=== PATIENT | female | born 1985 | race Caucasian/White ===

== ENCOUNTER 2019-06-27 19:53 | Emergency (ER) | payer SELFPAY ==
[2019-06-27] MEDS ORDERED: ONDANSETRON 4 MG TAB.RAPDIS PO ONE (21:29)
--- NOTE | 2019-06-27 21:31 | ER Document Report ---
ED Medical Screen (RME) - General Chief Complaint: Abdominal Pain Stated Complaint: ABDOMINAL PAIN Time Seen by Provider: 06/27/19 21:29 Information source: Patient Notes: Patient reports developing left lateral side pain that started yesterday. Patient states this morning she woke up and the left side pain had resolved and the pain is now to the right lower quadrant. Patient complains of abdominal distention with nausea. Patient also complains of some dysuria symptoms. No fever, no vomiting. I have greeted and performed a rapid initial assessment of this patient. A comprehensive ED assessment and evaluation of the patient, analysis of test results and completion of the medical decision making process will be conducted by additional ED providers. Physical Exam - Vital signs Vitals: Temp Pulse Resp BP Pulse Ox 97.7 F 69 16 124/65 98 06/27/19 20:05 06/27/19 20:05 06/27/19 20:05 06/27/19 20:05 06/27/19 20:05 - Abdominal Tenderness: Tender - Right lower quadrant Course - Vital Signs Vital signs: Temp Pulse Resp BP Pulse Ox 97.7 F 69 16 124/65 98 06/27/19 20:05 06/27/19 20:05 06/27/19 20:05 06/27/19 20:05 06/27/19 20:05
--- NOTE | 2019-06-27 22:51 | RADIOLOGY REPORT (SQ) ---
Ultrasound of the pelvis: 06/27/2019 9:48 PM SIX SIGMA BLACK TRAINER HISTORY: 34-year-old patient with right lower quadrant pelvic and abdominal pain. TECHNIQUE: Multiple grayscale and color Doppler images of the pelvis were obtained transvaginally. COMPARISON: None available FINDINGS: The uterus measures 9.2 x 4.5 x 5.3 cm. The endometrium measures 5.0 mm in thickness. No myometrial mass is seen. No free intraperitoneal fluid is seen within the posterior cul-de-sac. The right ovary measures 3.5 x 2.1 x 2.5 cm. The left ovary was not visualized. Arterial and venous waveforms were obtained from the right ovary. IMPRESSION: No sonographic abnormality is seen within the pelvis.
[2019-06-28 00:01] LABS: APPEARANCE,URINE SLIGHTLY-CLOUDY; BILIRUBIN,URINE NEGATIVE (NEGATIVE); COLOR,URINE YELLOW; GLUCOSE, URINE NEGATIVE (NEGATIVE); KETONES,URINE NEGATIVE (NEGATIVE); LEUKOCYTE ESTERASE,URINE NEGATIVE (NEGATIVE); NITRITE,URINE NEGATIVE (NEGATIVE); PROTEIN,URINE NEGATIVE (NEGATIVE); URINE SPECIFIC GRAVITY 1.023; UROBILINOGEN,URINE NEGATIVE mg/dL (<2.0)
[2019-06-28 00:19] LABS: CHLAM PCR NOT DETECTED (NOT DETECT)
[2019-06-28] MEDS ORDERED: ONDANSETRON 4 MG TAB.RAPDIS ONE (01:15)
[2019-06-28 01:24] LABS: ABSOLUTE BASOPHILS # (AUTO) 0.1 10^3/uL (0.0-0.2); ABSOLUTE EOSINOPHILS # (AUTO) 0.2 10^3/uL (0.0-0.6); ABSOLUTE LYMPHOCYTES (AUTO) 3.7 10^3/uL (0.5-4.7); ABSOLUTE MONOCYTES (AUTO) 0.6 10^3/uL (0.1-1.4); ABSOLUTE NEUT (AUTO) 5.6 10^3/uL (1.7-8.2); BASOPHILS % (AUTO) 0.8 % (0-2); EOSINOPHILS % (AUTO) 1.8 % (0-6); HEMOGLOBIN 13.8 g/dL (12.0-15.5); LYMPHOCYTES % (AUTO) 36.4 % (13-45); MEAN CORPUSCULAR HEMOGLOBIN 29.7 pg (27.0-33.4); MEAN CORPUSCULAR HGB CONC 33.8 g/dL (32.0-36.0); MEAN CORPUSCULAR VOLUME 88 fl (80-97); PLATELET COUNT 315 10^3/uL (150-450); RED BLOOD COUNT 4.66 10^6/uL (3.72-5.28); RED CELL DISTRIBUTION WIDTH 13.8 % (11.5-14.0); TOTAL CELLS COUNTED % (AUTO) 100 %; WHITE BLOOD COUNT 10.1 10^3/uL (4.0-10.5)
--- NOTE | 2019-06-28 01:41 | ER Document Report ---
ED GI/ - General Chief Complaint: Lower Abdominal Pain Stated Complaint: ABDOMINAL PAIN Time Seen by Provider: 06/27/19 21:29 Notes: Patient is a 34-year-old female that comes to the emergency department for chief complaint of swelling of the abdomen and pain at first only in her left but now also in her right mid to lower abdomen. Symptoms started yesterday but she states that she has ongoing problems with lower abdominal pain. She also reports some dysuria but states this is also chronic for her. She denies vaginal bleeding or discharge but she does report irregular menstrual cycles. She denies any abdominal surgeries. She states she has had a cystoscopy in the past because of ongoing dysuria and this was normal. She denies any abdominal surgeries or daily medications. She states her bowel movements are very abnormal, always diarrhea, and she has current hemorrhoids. TRAVEL OUTSIDE OF THE [place] IN LAST 30 DAYS: No - Related Data Allergies/Adverse Reactions: No Known Allergies Allergy (Verified 06/28/19 01:11) Home Medications: acid investment counselor tab. gabapentin. buspar. clonidine. hydroxyzine. lamictal. seroquel. celexa Past Medical History - General Information source: Patient - Social History Smoking Status: Current Every Day Smoker Frequency of alcohol use: None Drug Abuse: None Lives with: Family Family History: Reviewed & Not Pertinent Patient has suicidal ideation: No Patient has homicidal ideation: No - Immunizations Immunizations up to date: Yes Hx Diphtheria, Pertussis, Tetanus Vaccination: Yes Review of Systems - Review of Systems Constitutional: No symptoms reported EENT: No symptoms reported Cardiovascular: No symptoms reported Respiratory: No symptoms reported Gastrointestinal: See HPI Genitourinary: See HPI Female Genitourinary: See HPI Musculoskeletal: No symptoms reported Skin: No symptoms reported Hematologic/Lymphatic: No symptoms reported Neurological/Psychological: No symptoms reported Physical Exam - Vital signs Vitals: Temp Pulse Resp BP Pulse Ox 97.7 F 69 16 124/65 98 06/27/19 20:05 06/27/19 20:05 06/27/19 20:05 06/27/19 20:05 06/27/19 20:05 - Notes Notes: GENERAL: Alert, interacts well. No acute distress. HEAD: Normocephalic, atraumatic. EYES: Pupils equal, round, and reactive to light. Extraocular movements intact. ENT: Oral mucosa moist, tongue midline. Oropharynx unremarkable. Airway patent. LUNGS: Clear to auscultation bilaterally, no wheezes, rales, or rhonchi. No respiratory distress. HEART: Regular rate and rhythm. No murmur ABDOMEN: Slightly distended abdomen which has some generalized tenderness but no guarding. Bowel sounds are slightly quiet but still present. GENITOURINARY: No concerning external findings, speculum exam is completely normal, no cervical motion tenderness. Exam performed with Brainne RN at bedside assisting. EXTREMITIES: Moves all 4 extremities spontaneously. No edema, normal radial and dorsalis pedis pulses bilaterally. No cyanosis. BACK: no cervical, thoracic, lumbar midline tenderness. No saddle anesthesia, normal distal neurovascular exam. Moves all extremities in full range of motion. NEUROLOGICAL: Alert and oriented x3. Normal speech. Cranial nerves II through XII grossly intact. PSYCH: Patient speaks rapidly and anxiously about all of her symptoms. SKIN: Warm, dry, normal turgor. No rashes or lesions noted. Course - Re-evaluation Re-evalutation: Patient was initially very anxious about all of her symptoms. She does have some abdominal distention which is mild, her abdomen has very mild generalized tenderness, no guarding. Vital signs unremarkable. Work-up completely unre markable including CBC, chemistry, urinalysis, pelvic exam, ultrasound. I did perform KUB as well, this shows no concerning findings but does show that with some retained stool. I suspect patient's symptoms are from her bowel. Patient will be given medications to help clear her bowel and for bowel symptoms, I did discuss gastroenterology follow-up, I did attempt to reassure her. I feel very low suspicion of acute abdomen or concerning abnormality based on her evaluation. Patient did state appreciation and agreement, asymptomatic at time of discharge. - Vital Signs Vital signs: Temp Pulse Resp BP Pulse Ox 97.8 F 77 16 102/53 L 99 06/28/19 04:16 06/28/19 04:16 06/28/19 04:16 06/28/19 04:16 06/28/19 04:16 - Laboratory Result Diagrams: 06/28/19 01:04 06/28/19 01:04 Laboratory results interpreted by me: 06/27/19 20:01 Urine Ascorbic Acid 20 H Discharge - Discharge Clinical Impression: Abdominal swelling Abdominal pain Qualifiers: Abdominal location: generalized Qualified Code(s): R10.84 - Generalized abdominal pain Condition: Stable Disposition: HOME, SELF-CARE Additional Instructions: Your ultrasound is normal. Your laboratory work-up including urinalysis and pelvic swabs are normal. Your imaging of the abdomen shows retained stool and gas but no other concerning findings. Recommendation is to take prescribed medications, avoid any straining on the toilet, with this your bowel swelling and pain should gradually resolve and your hemorrhoid should resolve. I recommend that you drink 1/4 to 1/2 of the magnesium citrate, then if after several hours you do not have bowel movement results drink another 1/4 to half. You may need to take the colace stool softener for the next 2-4 days as well as prescribed. Take bentyl for cramping, Phenergan for nausea. Improve your diet - increased vegetables, fruits, fiber, and fluids are very helpful to clear your bowels. 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 Return for any concerning symptoms including vomiting, severe worsening pain, fever, or any other concerning symptoms. Prescriptions: Dicyclomine HCl [Bentyl 20 mg Tablet] 20 mg PO QID PRN #20 tablet PRN Reason: Docusate Sodium [Colace 100 mg Capsule] 100 mg PO ASDIR PRN #30 capsule PRN Reason: Promethazine HCl [Phenergan 25 mg Tablet] 25 mg PO Q6H PRN #15 tablet PRN Reason: Forms: Return to Work
[2019-06-28 01:49] LABS: ALBUMIN 4.2 g/dL (3.5-5.0); ALKALINE PHOSPHATASE 66 U/L (38-126); ANION GAP 7 (5-19); ASPARTATE AMINO TRANSFERASE 20 U/L (14-36); BILIRUBIN,TOTAL 0.3 mg/dL (0.2-1.3); BLOOD UREA NITROGEN 14 mg/dL (7-20); CALCIUM 9.3 mg/dL (8.4-10.2); CARBON DIOXIDE 26 mmol/L (22-30); CHLORIDE 105 mmol/L (98-107); GLUCOSE 98 mg/dL (75-110); POTASSIUM 4.8 mmol/L (3.6-5.0); TOTAL PROTEIN 7.1 g/dL (6.3-8.2)
[2019-06-28 02:38] LABS: RBCS (WET MOUNT) NO RBCS SEEN; T.VAGINALIS (WET MOUNT) NO TRICHOMONAS SEEN; WBCS (WET MOUNT) 1+ WBCS SEEN; YEAST (WET MOUNT) NO YEAST SEEN
--- NOTE | 2019-06-28 02:43 | RADIOLOGY REPORT (SQ) ---
EXAM DESCRIPTION: XR ABDOMEN 1 VIEW (KUB) COMPLETED DATE/TME: 06/28/2019 01:39 CLINICAL HISTORY: 34 years, Female, swelling of the abdomen COMPARISON: None. NUMBER OF VIEWS: 2 TECHNIQUE: LIMITATIONS: None. FINDINGS: Nonspecific gas pattern. No obstruction or free air. Phleboliths within the pelvis. No obvious free air. Osteoarthritis IMPRESSION: No acute intra-abdominal process is identified copyright 2010 [employer]- All Rights Reserved
[2019-06-28] MEDS ORDERED: MAGNESIUM CITRATE 296 ML BOTTLE PO ONE (03:47)
[2019-06-28 04:20] VITALS: BP 102/53
== END 2019-06-28 04:20 | disposition home or self-care (01) ==
LOC: ER 19:53
DX: K59.00 Constipation, unspecified (principal); R10.84 Generalized abdominal pain; R14.0 Abdominal distension (gaseous); R10.817 Generalized abdominal tenderness; R30.0 Dysuria; N92.6 Irregular menstruation, unspecified; R19.7 Diarrhea, unspecified; F17.200 Nicotine dependence, unspecified, uncomplicated; Z79.899 Other long term (current) drug therapy
CPT/HCPCS: 99284; 36415; 87210; 84703; 83690; 85025; 80053; 81001; 87491; 87591; 74018; 76830; 93976; J3490; S0119